=== PATIENT | male | born 1970 | race American Indian/Alaskan Native ===

== ENCOUNTER 2020-09-09 10:45 | Outpatient (CLI) | payer OTHER ==
--- NOTE | 2020-09-09 11:38 | XRay Report ---
LUMBAR SPINE 2 VIEWS INDICATION: CHRONIC BACK PAIN, LUMBAR PROBLEMS,CHRONIC PAIN COMPARISON: None. FINDINGS: There is no fracture, subluxation, or other acute radiographic abnormality of the lumbar spine. Ther e are small anterior osteophytes throughout the lumbar spine. There is mild disc space narrowing at L 5-S1. Signer Name: Sha Thapa MD Signed: 09/09/2020 11:33 AM Workstation Name: [id number]
== END 2020-09-09 10:46 | disposition home or self-care (01) ==
LOC: XRAY 10:45
PROVIDERS: ATTEND Internal Medicine
DX: M48.07 Spinal stenosis, lumbosacral region (principal); M25.78 Osteophyte, vertebrae
CPT/HCPCS: 72100